=== PATIENT | female | born 1995 | race Caucasian/White ===

== ENCOUNTER 2017-05-28 20:12 | Emergency (ER) | payer OTHER ==
[~2017-05-28] VITALS: Ht 167.6 cm; Wt 61.0 kg
[~2017-05-28 20:12] MED LIST: BCPILLS PO; ZLF/100 PO
[2017-05-28 20:20] VITALS: BP 114/39; PULSE 59; TEMP 36.7; O2SAT 98; Ht 167.6 cm; Wt 61.0 kg
[2017-05-28] MEDS ORDERED: ACETAMINOPHEN 325 MG TAB PO STA (20:48)
[2017-05-28] MEDS ORDERED: MULT-506 PO (20:56)
--- NOTE | 2017-05-28 20:59 | EMERGENCY ROOM VISIT NOTE ---
History First contact with patient: 20:38 Chief Complaint: HEAD INJURY (MINOR) Stated Complaint: SKIING ACCIDENT, HIT HEAD, LEG PAIN History of Present Illness The patient is a 21 year old female who presents to the Emergency Room with complaints of head injury. The patient states that she was skiing and went over a jump and is unsure if she lost consciousness but she was aware when she was sliding on the ground with her face hitting the ice. The patient denies any visual changes or dizziness. She currently rates her headache at a 4 out of 10. She points to the frontal area as the area pain. The patient denies any short-term memory loss. The patient denies any neck or back pain. The patient also admits to the back of her left calf being bruised but states she is able to bear weight on that leg without any difficulty. She is not concerned of that area. Review of Systems 10 system review was performed and was negative unless stated otherwise history of present illness. Past Medical/Surgical History Medical Problems: (1) No Known Active Medical Problems Family History No significant family history Social History Smoking Status: Never Smoker Marital Status: single Housing Status: lives with roommate Occupation Status: [employer] Current/Historical Medications Scheduled Control Pills ( Control Pills), 1 TAB PO DAILY Sertraline HCl (Sertraline HCl), 100 MG PO DAILY Physical Exam Vital Signs Date Time Temp Pulse Resp B/P (MAP) Pulse Ox O2 Delivery O2 Flow Rate FiO2 05/28/17 20:22 18 218 20:20 36.7 59 18 114/39 98 Room Air Physical Exam GENERAL: 21-year-old white female appears in no acute distress. MENTAL Status: Alert and oriented 3. HEAD: Atraumatic, nontender to palpation throughout. EYES: PERRLA. EOMs intact. EARS: Canals clear. TMs without hemotympanum FACE: Patient has superficial abrasions over the right side of her face. No deep cuts are noted. No erythema or edema noted. NECK: Supple, no lymphadenopathy noted. No carotid bruits noted. CERVICAL SPINE: Nontender to palpation over the spinous processes in the paravertebral region. Full range of motion without pain. LEFT LOWER LEG: No gross bony deformity noted. No erythema or edema noted. The patient is tender to palpation over mid posterior aspect. Patient is full range of motion of the ankle and knee without difficulty. Medical Decision & Procedures ED Course Patient was evaluated. The wounds were cleansed and antibiotic ointment applied. The risks and benefits of obtaining a CAT scan at this time are reviewed with patient. The patient would like to wait on getting a CAT scan. I told her if symptoms worsen at any time she is welcome to come back for the CAT scan. The patient verbalized understanding and was discharged home in stable condition. Medical Decision Differential includes: Acute intracranial bleed, trauma, meningitis, encephalitis, increased intracranial pressure, mass or mass effect, facial or dental infection, temporal arteritis, CVA, TIA, acute hypertensive emergency, sinusitis, carbon monoxide exposure. Impression Primary Impression: Closed head injury Additional Impression: Facial abrasion Departure Information Dispostion Home / Self-Care Condition GOOD Referrals No Doctor, Assigned (PCP) Forms HOME CARE DOCUMENTATION FORM, IMPORTANT VISIT INFORMATION Patient Instructions ED Head Injury Closed, [facility] Additional Instructions Tylenol as needed for headache over the next 48 hours. Follow head injury handout instructions, any problems return to ER immediately. Any signs of infection for facial abrasions, follow-up with [facility]. Problem Qualifiers Primary Impression: Closed head injury Encounter type: initial encounter Qualified Codes: S09.90XA - Unspecified injury of head, initial encounter Additional Impression: Facial abrasion Encounter type: initial encounter Qualified Codes: S00.81XA - Abrasion of other part of head, initial encounter
== END 2017-05-28 21:19 | disposition home or self-care (01) ==
LOC: C.EDB 20:14 → C.EDD 21:19
DX: S00.81XA Abrasion of other part of head, initial encounter (principal); Y93.23 Activity, snow (alpine) (downhill) skiing, snowboarding, sledding, tobogganing and snow tubing; W19.XXXA Unspecified fall, initial encounter; Z79.3 Long term (current) use of hormonal contraceptives; Z79.899 Other long term (current) drug therapy